=== PATIENT | female | born 1955 | race Caucasian/White ===

== ENCOUNTER 2017-06-19 05:46 | Emergency (ER) | payer MEDICAID, OTHER ==
[~2017-06-19] VITALS: Ht 157.5 cm; Wt 70.5 kg
[~2017-06-19 05:46] MED LIST: [UNRECOGNIZED DRUG - REMARK]
[2017-06-19 05:49] VITALS: Ht 157.5 cm; Wt 70.5 kg
[2017-06-19] MEDS ORDERED: IBUPROFEN 200 MG TAB PO ONE (06:30)
--- NOTE | 2017-06-19 07:43 | RADRPT ---
PROCEDURE: XR Wrist. CLINICAL INDICATION: Right wrist pain. TECHNIQUE: AP, bilateral oblique, scaphoid and lateral views of the right wrist were performed. COMPARISON: No prior studies are available for comparison. FINDINGS: The osseous structures are intact. No destructive bony lesions are identified. Interosseous spaces are normal. Soft tissues surrounding the wrist are unremarkable. IMPRESSION: Unremarkable right wrist. If further characterization is needed CT or MRI could be helpful. If there is high clinical suspicion for traumatic injury, further evaluation with CT should be consi dered. RPTAT: AA .Grant Cheng MD, MD Date Time Electronically viewed and signed by .Grant Cheng MD, on 06/19/2017 07:43 .P/
[2017-06-19] MEDS ORDERED: NAPR-260 PO (07:47)
--- NOTE | 2017-06-19 10:11 | ERD ---
ER Documentation Chief Complaint Date/Time DATE: 06/19/17 TIME: 08:48 Chief Complaint pt fell today and landed on right hand- pt c/o pain now HPI 61-year-old female complaining of right wrist pain. Patient tripped and fell on outstretched hand. Patient is right-hand dominant. Has not taken medication for pain. Denies numbness or tingling. Has normal range of motion but has pain with pronation and supination. Has never had this problem before. ROS All systems reviewed and are negative except as per history of present illness. Medications Home Meds Active Scripts Naproxen* (Naprosyn*) 500 Mg Tablet, 500 MG PO BID Y for PAIN AND/OR INFLAMMATION, #30 TAB Prov:EMORY VALDERRAMA PA-C 06/19/17 Reported Medications [No Meds Takin] No Conflict Check 05/12/10 Allergies Allergies: Coded Allergies: No Known Allergy (Verified , 06/19/17) PMhx/Soc Medical and Surgical Hx: pt denies Medical Hx, pt denies Surgical Hx History of Surgery: No Anesthesia Reaction: No Hx Neurological Disorder: No Hx Respiratory Disorders: No Hx Cardiac Disorders: No Hx Psychiatric Problems: No Hx Miscellaneous Medical Probl: No (NO OTHER MEDICLA PEOBLEMS) Hx Alcohol Use: No Hx Substance Use: No Hx Tobacco Use: No Smoking Status: Never smoker Physical Exam Vitals Vital Signs Date Time Temp Pulse Resp B/P Pulse Ox O2 Delivery O2 Flow Rate FiO2 06/19/17 05:49 98.6 65 20 116/67 99 Physical Exam GENERAL: The patient is well-appearing, well-nourished, in no acute distress CHEST: Clear to auscultation bilaterally. There are no rales, wheezes or rhonchi. HEART: Regular rate and rhythm. No murmurs, clicks, rubs or gallops. No S3 or S4. EXTREMITIES: Tender to palpation over right wrist. No deformity. Normal radial ulnar and median nerve innervation. To isolate at the DIP and PIP joint. Normal range of motion of right upper extremity. NEUROLOGIC: Pulses intact to right upper distal extremity. Vascularly intact. SKIN: There is no apparent rash or petechiae. The skin is warm and dry. Results 24 hrs Current Medications Medications (Trade) Dose Ordered Sig/Joel Route PRN Reason Start Time Stop Time Status Last Admin Dose Admin Ibuprofen (Motrin) 400 mg ONCE ONCE PO 06/19/17 06:30 06/19/17 06:31 DC 06/19/17 06:34 Procedures/MDM DIAGNOSTIC IMAGING REPORT Patient: JAN AGUIRRE : 1955 Age: 61 Sex: F MR #: [id number] DOS: 06/19/17626 Ordering MD: BERNIE VALDERRAMA PA-C Location: [facility] Room/Bed: PROCEDURE: XR Wrist. CLINICAL INDICATION: Right wrist pain. TECHNIQUE: AP, bilateral oblique, scaphoid and lateral views of the right wrist were performed. COMPARISON: No prior studies are available for comparison. FINDINGS: The osseous structures are intact. No destructive bony lesions are identified. Interosseous spaces are normal. Soft tissues surrounding the wrist are unremarkable. IMPRESSION: Unremarkable right wrist. If further characterization is needed CT or MRI could be helpful. If there is high clinical suspicion for traumatic injury, further evaluation with CT should be considered. ER course: Velcro wrist splint given in ED. Neuro intact pre-and post splint application MDM: 61-year-old female complaining of right wrist pain. I have low suspicion for acute fracture dislocation. I have low suspicion for neuro deficits. Patient tenderness to palpation on exam however no deformity. Patient's x-ray is within normal limits. I did not feel that there was indication for further imaging at this time. Patient will be given a wrist splint as she likely sustained a wrist contusion. Patient is discharged with strict ER precautions. Patient is recommended to follow-up with primary care and orthopedics within 1 -2 days for close evaluation. All questions answered at discharge. Departure Diagnosis: Primary Impression: Wrist contusion Condition: Stable Patient Instructions: Wrist Splint, Velcro Referrals: [facility] YOU HAVE RECEIVED A MEDICAL SCREENING EXAM AND THE RESULTS INDICATE THAT YOU DO NOT HAVE A CONDITION THAT REQUIRES URGENT TREATMENT IN THE EMERGENCY DEPARTMENT. FURTHER EVALUATION AND TREATMENT OF YOUR CONDITION CAN WAIT UNTIL YOU ARE SEEN IN YOUR DOCTORS OFFICE WITHIN THE NEXT 1-2 DAYS. IT IS YOUR RESPONSIBILITY TO MAKE AN APPOINTMENT FOR FOLOW-UP CARE. IF YOU HAVE A PRIMARY DOCTOR --you should call your primary doctor and schedule an appointment IF YOU DO NOT HAVE A PRIMARY DOCTOR YOU CAN CALL OUR PHYSICIAN REFERRAL HOTLINE AT IF YOU CAN NOT AFFORD TO SEE A PHYSICIAN YOU CAN CHOSE FROM THE FOLLOWING PENDING SALE TO [facility] [address] [facility] [phone] [facility] [facility] [address] [facility] [address] [facility] [phone] [facility] [facility]. [address] Additional Instructions: FOLLOW UP WITH YOUR PRIMARY CARE PHYSICIAN TOMORROW.Return to this facility if you are not improving as expected. EMORY VALDERRAMA PA-C Jun 19, 2017 10:09
== END 2017-06-19 08:10 | disposition home or self-care (01) ==
LOC: FTE 05:46
DX: S60.211A Contusion of right wrist, initial encounter (principal); W01.0XXA Fall on same level from slipping, tripping and stumbling without subsequent striking against object, initial encounter; Y92.9 Unspecified place or not applicable
CPT/HCPCS: 29125; 73110; Z7502; Z7610

== ENCOUNTER 2019-02-22 07:28 | Day surgery (SDC) | payer BC, OTHER ==
[~2019-02-22] VITALS: Ht 147.3 cm; Wt 67.6 kg
[~2019-02-22 07:28] MED LIST changes: +IBUP-1561 PO; +METH750T93 PO; +NAPR-985 PO; +TYL500 PO
[2019-02-22] MEDS ORDERED: POLY17PO6 PO (08:05)
[2019-02-22 08:06] VITALS: Ht 147.3 cm; Wt 67.6 kg
[2019-02-22 08:11] VITALS: BP 120/66; PULSE 56; RESP 18
[2019-02-22] MEDS ORDERED: FENTAnyl 50 MCG/ML VIAL ONE (09:52)
[2019-02-22] MEDS ORDERED: MIDAZOLAM 1 MG/ML 2 ML INJ ONE (09:52)
[2019-02-22 10:26] VITALS: PULSE 62
== END 2019-02-22 10:19 | disposition home or self-care (01) ==
LOC: GIL 07:28
PROVIDERS: ATTEND Internal Medicine Gastroenterology
DX: Z12.11 Encounter for screening for malignant neoplasm of colon (principal); D12.5 Benign neoplasm of sigmoid colon; K64.8 Other hemorrhoids
CPT/HCPCS: 45380; 88305; J2250; J3010; Z7610